=== PATIENT | female | born 1995 | race Caucasian/White ===

== ENCOUNTER → 2016-05-04 | Outpatient (CLI) | payer OTHER ==
[~2016-05-04] MED LIST: CEFD300C3 PO; DEPO SHOT; ONDA-42 SL
--- OUTSIDE RECORDS SUMMARY | 2016-05-04 15:22 | XMS REPORT | Continuity of Care Document ---
Author Author [facility] Organization [facility] Address Unknown Phone Unavailable Care Team Providers Care Chief Of Police Name Role Phone [facility], [facility] PCP Insurance Providers Payer Name Policy Number Subscriber Name [facility] [id number] Jamee Bender 16 Self / Same As Patient Advance Directives Directive Response Recorded Date/Time Advance Directives No 12/27/13 1:53am Resuscitation Status Full Code 12/27/13 1:53am Problems Medical Problems Problem Onset Date Status Fever Unknown Active Fever Unknown Active Medications Medication Dose Route Sig Days/Qty Instructions Order Date Discontinued Date Status [Depo Shot] 12/27/13 Active Cefdinir (Omnicef) 1 Each PO TWICE A DAY 20 Qty 12/27/13 Active Ondansetron Hcl 4 Mg SL EVERY 4HRS 10 Qty FOR NAUSEA AND VOMITING Active Social History Social History Problem Response Recorded Date/Time Alcohol Use Occasionally Uses 12/27/2013 1:53am Recreational Drug Use No 12/27/2013 1:53am Recent Foreign Travel No 12/27/2013 1:53am Smoking Status Never a Smoker 12/27/2013 1:53am Query Response Start Date Stop Date Smoking Status Never a Smoker Hospital Discharge Instructions No hospital discharge instructions. Plan of Care No plan of care. Functional Status No functional status results. Allergies, Adverse Reactions, Alerts Allergen Type Severity Reaction Status Last Updated clavulanic acid ([id number]) Allergy Unknown Active 12/27/13 Amoxicillin ([id number]) Allergy Unknown Active 12/27/13 Immunizations No immunization records. Vital Signs Acute Vital Signs Vital Response Date/Time Temperature (Fahrenheit) 100.5 degrees F (97.6 - 99.5) Temperature (Calculated Celsius) 38.40547 degrees C (36.4 - 37.5) Temperature Source Temporal Pulse Rate (adult) 129 bpm (60 - 90) Respiratory Rate 18 bpm (12 - 24) O2 Sat by Pulse Oximetry 99 % (88 - 100) Blood Pressure 146/85 mm Hg Pain Pain Intensity 5 Height (Feet) 5 feet Height (Inches) 5 inches Height (Calculated Centimeters) 165.995230 cm Weight (Pounds) 132 pounds Weight (Calculated Kilograms) 59.468521 kilograms Calculated BMI 21.96 Results No known relevant diagnostic tests, laboratory data and/or discharge summary. Procedures No known history of procedures. Encounters Encounter Location Date/Time Departed Emergency Room [facility] 12/27/13 1:45am Recent Diagnosis
--- NOTE | 2016-05-04 17:47 | Diagnostic Imaging Report ---
PROCEDURE: US Thyroid. INDICATION: Abnormal thyroid values. TECHNIQUE: Grayscale sonographic images of the thyroid gland. CORRELATION STUDY: None. FINDINGS: RIGHT LOBE: 5.0 x 1.4 x 2.1 cm. Tiny hypoechoic nodule of the right lobe, probable cyst with small echogenic nodule measures 4 x 5 x 2 mm. LEFT LOBE: 4.2 x 1.2 x 1.5 cm. Tiny hypoechoic nodule, likely cyst in the mid superior pole at 3 x 4 x 2 mm. Isthmus appears unremarkable. IMPRESSION: Small likely cystic nodules of both lobes. Thyroid gland is otherwise unremarkable apart from borderline enlarged. Dictated by: Dictated on workstation # [id number]
== END ==
LOC: RAD 15:19
PROVIDERS: ATTEND Nurse Practitioner Primary Care
DX: E04.2 Nontoxic multinodular goiter (principal)
CPT/HCPCS: 76536